=== PATIENT | male | born 1990 | race Two or more races ===

== ENCOUNTER 2016-11-07 16:20 | Emergency (ER) | payer MEDICAID ==
[~2016-11-07] VITALS: Ht 152.4 cm; Wt 63.5 kg
[2016-11-07 16:47] VITALS: BP 126/68
== END 2016-11-07 17:50 | disposition home or self-care (01) ==
LOC: ER 16:24
DX: H00.11 Chalazion right upper eyelid (principal)
CPT/HCPCS: 99281; A4606; Z7610; Z7502

== ENCOUNTER 2017-04-19 04:40 | Emergency (ER) | payer MEDICAID ==
[~2017-04-19] VITALS: Ht 172.7 cm; Wt 68.0 kg
--- NOTE | 2017-04-19 04:48 | NUR ---
TO BED 6 A 26YO MALE PT C/O MID EPIGASTRIC PAIN X 6 DAYS AND STARTING YESTERDAY PT STATES HE HAD NAUSEA AND VOMITING. PATIENT IS AAOX3, AMBULATORY WITH STEADY GAIT. VSS. AFEBRILE. NONDIAPHORETIC. COMFORT MEASURES RENDERED. DR ALFORD AT BEDSIDE FOR EVAL.
[2017-04-19] MEDS ORDERED: MAG HYDROX/AL HYDROX/SIMETH 30 ML UDC ONE (04:51)
[2017-04-19] MEDS ORDERED: LIDOCAINE VISCOUS 2% UD 15 ML UDC ONE (04:52)
--- NOTE | 2017-04-19 04:58 | NUR ---
Medicated patient as ordered by Dr Rodrigues.
[2017-04-19] MEDS ORDERED: MAG HYDROX/AL HYDROX/SIMETH 30 ML UDC PO ONE (05:00)
[2017-04-19] MEDS ORDERED: LIDOCAINE VISCOUS 2% UD 15 ML UDC MM ONE (05:00)
[2017-04-19] MEDS ORDERED: MORPHINE SULFATE INJ 4 MG/ML DISP.SYRIN ONE (05:14)
[2017-04-19] MEDS ORDERED: ONDANSETRON HCL/PF 4 MG/2 ML VIAL ONE (05:14)
[2017-04-19] MEDS ORDERED: IV SET PRIMARY 1 EA INFUS.SET MC ONE (05:14)
[2017-04-19] MEDS ORDERED: IV NS 0.9% 500 ML IV ONE (05:14)
--- NOTE | 2017-04-19 05:25 | NUR ---
started a saline lock on the right ac g20, blood drawn and sent to lab.
[2017-04-19] MEDS ORDERED: MORPHINE SULFATE INJ 2 MG/ML DISP.SYRIN IV ONE (05:30)
[2017-04-19] MEDS ORDERED: ONDANSETRON HCL/PF 4 MG/2 ML VIAL IVP ONE (05:30)
[2017-04-19] MEDS ORDERED: IV NS 0.9% 500 ML BAG IV ONE (05:30)
[2017-04-19 05:35] LABS: BASOPHILS % (AUTO) 0.3 % (0.0-2.0); EOSINOPHILS # (AUTO) 0.1 /CMM (0.0-0.7); EOSINOPHILS % (AUTO) 1.2 % (0.0-6.0); HEMATOCRIT 46 % (39-51); HEMOGLOBIN 16.3 g/dL (13.5-17.5); LYMPHOCYTES # (AUTO) 0.8 /CMM (0.8-4.8); LYMPHOCYTES % (AUTO) 8.1 % (20.0-44.0); MEAN CORPUSCULAR HEMOGLOBIN 31 PG (26.0-33.0); MEAN CORPUSCULAR HGB CONC 35 g/dl (31.0-36.0); MEAN CORPUSCULAR VOLUME 88 fL (80-96); MONOCYTES # (AUTO) 0.5 /CMM (0.1-1.30); MONOCYTES % (AUTO) 5.5 % (2.0-12.0); NEUTROPHILS # (AUTO) 8.5 /CMM (1.8-8.9); NEUTROPHILS % (AUTO) 84.9 % (43.0-81.0); PLATELET COUNT (AUTO) 180 /CMM (150-450); RDW COEFFICIENT OF VARIATION 12.6 (11.5-15.0); RED BLOOD CELL COUNT(AUTO) 5.26 MIL/uL (4.5-6.0)
[2017-04-19 05:45] LABS: CALCIUM, SERUM 9.1 mg/dL (8.5-10.1); CARBON DIOXIDE 28 mmol/L (21-32); CHLORIDE 104 mmol/L (98-107); CREATININE 0.8 mg/dL (0.6-1.3); GLUCOSE 124 mg/dL (74-106); POTASSIUM 3.5 mmol/L (3.5-5.1); SODIUM SERUM 140 mmol/L (136-145); UREA NITROGEN, BLOOD 18 mg/dL (7-18)
[2017-04-19 05:49] LABS: ALANINE AMINOTRANSFERASE 34 U/L (12-78); ALBUMIN 4.3 g/dL (3.4-5.0); ALKALINE PHOSPHATASE 120 U/L (46-116); ASPARTATE AMINOTRANSFERASE 20 U/L (15-37); BILIRUBIN,DIRECT 0.1 mg/dL (0.0-0.2); BILIRUBIN,TOTAL 0.4 mg/dL (0.2-1.0); LIPASE 115 U/L (73-393); TOTAL PROTEIN, SERUM 8.1 g/dL (6.4-8.2); TROPONIN I < 0.017 ng/mL (0.00-0.056)
--- NOTE | 2017-04-19 07:24 | NUR ---
Report given to Shemar ARNOLD for jeronimo.
--- NOTE | 2017-04-19 07:34 | NUR ---
RECEIVED REPORT FROM ALANA FOR SHARRON
--- NOTE | 2017-04-19 08:35 | NUR ---
ULTRASOUND AT BEDSIDE
[2017-04-19 09:01] VITALS: BP 110/64
--- NOTE | 2017-04-19 09:01 | NUR ---
Patient discharged to home in stable condition. Written and verbal after care instructions given. Patient verbalizes understanding of instruction. IV removed. Catheter intact and site benign. Pressure and 4x4 applied to site. No bleeding noted. NAD NOTED UPON DSICHARGE
== END 2017-04-19 09:02 | disposition home or self-care (01) ==
LOC: ER 04:42
DX: R10.13 Epigastric pain (principal)
CPT/HCPCS: 36415; 76705-TC; 80048-TC; 80076-TC; 83690-TC; 84484-TC; 85025-TC; A4606; J2270; J2405; J7040; Z7610

== ENCOUNTER 2018-04-28 21:17 | Emergency (ER) | payer MEDICAID ==
[~2018-04-28] VITALS: Ht 165.1 cm; Wt 72.6 kg
[2018-04-28 21:26] VITALS: BP 126/72
[2018-04-28] MEDS ORDERED: IBUPROFEN 600 MG TABLET PO ONE ×2 (21:30→21:51)
[2018-04-28 22:24] LABS: APPEARANCE,URINE SL CLOUDY (CLEAR); BILIRUBIN,URINE NEGATIVE (NEGATIVE); BLOOD, URINE NEGATIVE Ery/uL (NEGATIVE); COLOR,URINE YELLOW (YELLOW); KETONES,URINE NEGATIVE (NEGATIVE); LEUKOCYTE ESTERASE ,URINE NEGATIVE (NEGATIVE); NITRITE, URINE NEGATIVE (NEGATIVE); PROTEIN,URINE NEGATIVE (NEGATIVE); UGLUCOSE NEGATIVE (NEGATIVE); UROBILINOGEN,URINE 0.2 EU/dL (0.2)
== END 2018-04-28 22:55 | disposition home or self-care (01) ==
LOC: ER 21:19
DX: N45.1 Epididymitis (principal)
CPT/HCPCS: 76870; 81001; 87491; 87591; 99285; A4606; Z7610; 81000-TC

== ENCOUNTER 2022-11-17 19:58 | Emergency (ER) | payer MEDICAID ==
[~2022-11-17] VITALS: Ht 165.1 cm; Wt 66.7 kg
[2022-11-17 21:07] VITALS: BP 130/79
[2022-11-17] MEDS ORDERED: ERYT3.5O9 RIGHTEYE (21:18)
== END 2022-11-17 21:40 | disposition home or self-care (01) ==
LOC: ER 20:02
DX: H00.012 Hordeolum externum right lower eyelid (principal); Z79.899 Other long term (current) drug therapy